=== PATIENT | female | born 1990 | race African-American/Black ===

== ENCOUNTER 2024-07-14 11:02 | Emergency (ER) | payer OTHER ==
[2024-07-14 11:15] VITALS: RESP 18
[2024-07-14] MEDS: FLUORESCEIN STRIPS 1 MG STRIP RIGHT EYE ONE (11:30)
[2024-07-14] MEDS: PROPARACAINE 0.5% OPHTH DROPS 15 ML BTL LEFT EYE STA (11:30)
--- NOTE | 2024-07-14 12:39 | ED ---
Eye Problem HPI - General Chief complaint: Eye Problems Stated complaint: Object in left eye Time Seen by Provider: 07/14/24 12:37 Source: patient, RN notes reviewed Mode of arrival: ambulatory Limitations: no limitations - History of Present Illness Initial comments: 34-year-old female presented to the ER with a chief complaint of foreign body sensation in left eye. Patient states she woke this morning with an sensation. She denies any known possibilities of foreign body. She denies any double blurry vision. She states it feels like a "tear" in her eye. Patient denies any pain with extraocular motions. No other complaints at this time. - Related Data Allergies Allergy/AdvReac Type Severity Reaction Status Date / Time Penicillins Allergy Unknown Verified 07/14/24 11:15 Childhood Review of Systems ROS Statement: Those systems with pertinent positive or pertinent negative responses have been documented in the HPI. ROS Other: All systems not noted in ROS Statement are negative. Past Medical History Past Medical History: No Reported History History of Any Multi-Drug Resistant Organisms: None Reported Past Surgical History: Tonsillectomy Past Psychological History: No Psychological Hx Reported Smoking Status: Never smoker Past Alcohol Use History: None Reported Past Drug Use History: Marijuana General Exam Limitations: no limitations General appearance: alert, in no apparent distress Eye exam: Present: normal appearance, PERRL, EOMI. Absent: scleral icterus, conjunctival injection, periorbital swelling Pupils: Present: normal accommodation (2 mm bilaterally.), other (Fluorescein stain negative for acute uptake. IOP 14. Upper and lower lid inversion negative for foreign body.) Respiratory exam: Present: normal lung sounds bilaterally. Absent: respiratory distress, wheezes, rales, rhonchi, stridor Cardiovascular Exam: Present: regular rate, normal rhythm, normal heart sounds. Absent: systolic murmur, diastolic murmur, rubs, gallop, clicks Neurological exam: Present: alert, oriented X3, CN II-XII intact Skin exam: Present: warm, dry, intact, normal color. Absent: rash Course Vital Signs 07/14/24 07/14/24 11:12 13:14 Temperature 98.2 F 98.1 F Pulse Rate 70 68 Respiratory 18 18 Rate Blood Pressure 133/69 126/72 O2 Sat by Pulse 100 100 Oximetry - Reevaluation(s) Reevaluation #1: 07/14/24 visual acuity 20/25 bilaterally. OD 20/30, OS 20/50 Medical Decision Making - Medical Decision Making Was pt. sent in by a medical professional or institution ([employer]nard, [employer]NAGER [employer], urgent care, hospital, or jail...) When possible be specific @ -No Did you speak to anyone other than the patient for history (EMS, parent, family, police, friend...)? What history was obtained from this source @ -No Did you review nursing and triage notes (agree or disagree)? Why? @ -I reviewed and agree with nursing and triage notes Were old charts reviewed (outside hosp., previous admission, EMS record, old EKG, old radiological studies, urgent care reports/EKG's, jail records)? Report findings @ -No old charts were reviewed Differential Diagnosis (chest pain, altered mental status, abdominal pain women, abdominal pain men, vaginal bleeding, weakness, fever, dyspnea, syncope, headache, dizziness, GI bleed, back pain, seizure, CVA, palpatations, mental health, musculoskeletal)? @ -Corneal abrasion, ocular foreign body, hyphema, conjunctivitis, globe rupture, acute angle-closure glaucoma this list is not meant to be all-inclusive EKG interpreted by me (3pts min.). @ -None X-rays interpreted by me (1pt min.). @ -None done CT interpreted by me (1pt min.). @ -None done U/S interpreted by me (1pt. min.). @ -None done What testing was considered but not performed or refused? (CT, X-rays, U/S, labs)? Why? @ -None What meds were considered but not given or refused? Why? @ -None Did you discuss the management of the patient with other professionals (professionals i.e. [employer] Maynard, [employer], lab, RT, psych nurse, social sciences lecturer, transportation maintenance worker, teacher, aircraft electronics technical officer, casey saw operator)? Give summary @ -No Was smoking cessation discussed for >3mins.? @ -No Was critical care preformed (if so, how long)? @ -No Were there social determinants of health that impacted care today? How? (Homelessness, low income, unemployed, alcoholism, drug addiction, transportation, low edu. Level, literacy, decrease access to med. care, [facility], rehab)? @ -No Was there de-escalation of care discussed even if they declined (Discuss DNR or withdrawal of care, Hospice)? DNR status @ -No What co-morbidities impacted this encounter? (DM, HTN, Smoking, COPD, CAD, Cancer, CVA, ARF, Chemo, Hep., AIDS, mental health diagnosis, sleep apnea, morbid obesity)? @ -None Was patient admitted / discharged? Hospital course, mention meds given and route, prescriptions, significant lab abnormalities, going to OR and other pertinent info. @ -Discharge. 34 year old female presenting to the ER with a chief complaint of foreign body sensation in left eye. History and physical exam completed. Vitals within normal limits. Patient in no signs of distress and nontoxic- appearing. Pupils equal round reactive at 2 mm bilaterally. No conjunctival injection. Cornea clear. Intact extraocular motions. No periorbital edema or erythema. Fluorescein stain negative for acute uptake in left eye. Left IOP 14. visual acuity 20/25 bilaterally. OD 20/30, OS 20/50isual acuity 20/25 bilaterally. OD 20/30, OS 20/50 Patient's eye flushed with multiple saline fl ushes. Patient does report mild improvement of symptoms with proparacaine drops. Patient will be started on Tobrex eyedrops for infection prophylaxis. Advise close follow-up with ophthalmology, referral given. Strict return parameters discussed. Patient discharged in stable condition with follow-up to ophthalmology. Patient verbally expressed understanding and agreement with care plan. Case discussed with ED attending, Dr. Quinonez. Undiagnosed new problem with uncertain prognosis? @ -No Drug Therapy requiring intensive monitoring for toxicity (Heparin, Nitro, Insulin, Cardizem)? @ -No Were any procedures done? @ -No Diagnosis/symptom? @ -Foreign body sensation in eye Acute, or Chronic, or Acute on Chronic? @ -Acute Uncomplicated (without systemic symptoms) or Complicated (systemic symptoms)? @ -Uncomplicated Side effects of treatment? @ -No Exacerbation, Progression, or Severe Exacerbation? @ -No Poses a threat to life or bodily function? How? (Chest pain, [place], [place], pneumonia, PE, COPD, DKA, ARF, appy, cholecystitis, CVA, Diverticulitis, Homicidal, Suicidal, threat to staff... and all critical care pts) @ -No Disposition Clinical Impression: Foreign body sensation, left eye Disposition: HOME SELF-CARE Condition: Stable Instructions (If sedation given, give patient instructions): Eye Foreign Body (ED) Additional Instructions: Use Tobrex 2 drops in affected eye every 4 hours for 5 days. Follow-up with ophthalmology. Return to the ER for any new or worsening concerns. Is patient prescribed a controlled substance at d/c from ED?: No Referrals: Nonstaff,Physician [Primary Care Provider] - 1-2 days Carolina Walter MD [STAFF PHYSICIAN] - 1-2 days Time of Disposition: 12:39
[2024-07-14] MEDS: TOBRAMYCIN 0.3% OPHTH DROPS 5 ML BTL LEFT EYE STA (13:06)
[2024-07-14 13:15] VITALS: BP 126/72; PULSE 68; TEMP 98.1
== END 2024-07-14 13:15 | disposition home or self-care (01) ==
LOC: EC 11:02
DX: H57.8A2 Foreign body sensation, left eye (principal); Z88.0 Allergy status to penicillin
CPT/HCPCS: 99282